=== PATIENT | female | born 1950 | race Asian ===

== ENCOUNTER 2016-09-03 12:09 | Emergency (ER) | payer MEDICARE, OTHER ==
[~2016-09-03] VITALS: Ht 152.4 cm; Wt 41.8 kg
[~2016-09-03 12:09] MED LIST: ALEN70TA5 PO; AMLO10TA2 PO; ATOR40TA PO; CALC-141 PO; CHOL20003 PO; CYCL-259 PO; DOCU-30 PO; EZET10TA3 PO; FENO145T32 PO; GLUC1CAP48 PO; LOSA50TA6 PO; MULT-717 PO; NAPR500T3 PO; NORT25CA PO; PANT40TA5 PO
[2016-09-03] MEDS ORDERED: SODIUM CHLORIDE FLUSH 10ML SYR IVF ONE (14:00)
[2016-09-03 14:26] LABS: BLOOD UREA NITROGEN 12 mg/dL (7-18)
[2016-09-03 14:33] LABS: ASPARTATE AMINO TRANSFERASE 29 U/L (15-37)
[2016-09-03 14:36] LABS: IS PT STATUS REG ER OR PRE ER? YES
[2016-09-03 15:59] VITALS: BP 152/78
== END 2016-09-03 16:01 | disposition home or self-care (01) ==
LOC: ED 14:43
DX: I11.9 Hypertensive heart disease without heart failure (principal); R51 Headache; R53.83 Other fatigue; Z86.73 Personal history of transient ischemic attack (TIA), and cerebral infarction without residual deficits; I25.10 Atherosclerotic heart disease of native coronary artery without angina pectoris
CPT/HCPCS: 36415; 70450; 71010; 80053; 83880; 84443; 84484; 85025; 85379; 93005; 99285

== ENCOUNTER 2018-12-16 13:03 | Outpatient (CLI) | payer MEDICARE, OTHER | END 2018-12-16 23:59 | disposition home or self-care (01) | LOC: CFH 13:03 | PROVIDERS: ATTEND Nurse Practitioner Family | DX: I35.1 Nonrheumatic aortic (valve) insufficiency (principal); R07.9 Chest pain, unspecified | CPT/HCPCS: 78452; 93017; A9502; J2785 ==